=== PATIENT | male | born 1980 | race Caucasian/White ===

== ENCOUNTER 2018-05-12 13:55 | Inpatient (IN) | payer OTHER ==
[~2018-05-12] VITALS: Ht 162.6 cm; Wt 70.3 kg
--- NOTE | ~2018-05-12 | CON ---
[address] [address] CONSULTATION Name: MING ARREDONDO Room: [address] ADM IN M.R.#: [id number] Admission: 05/12/18 Attend Phys: Judith Murphy Discharge: Date of : 78 Report #: [id number] THIS REPORT FOR: //name// CC: ROJELIO physician/PCP Shane Humphreys DATE OF SERVICE: 05/12/2018 HISTORY OF PRESENT ILLNESS: The patient is a 37-year-old male who was involved in a 4-zheng accident. He slipped his 4-zheng, it landed on the back of his right calf and he developed approximately 4 cm laceration in the posterior aspect of his calf. He has been complaining of significant pain since the initial admission to the ER. We were consulted for evaluation and rule out of compartment syndrome. He denies any other acute complaints. PAST MEDICAL HISTORY: COPD. PAST SURGICAL HISTORY: Negative. FAMILY HISTORY: Noncontributory. SOCIAL HISTORY: He does use tobacco 1 pack a day and he also uses marijuana. HOME MEDICATIONS: None. ALLERGIES: VICODIN. REVIEW OF SYSTEMS: Obtained and negative except as noted in the HPI. PHYSICAL EXAMINATION: GENERAL: He is alert and oriented. He is in mild distress. HEENT: Head is normocephalic, atraumatic. Eyes, conjunctivae are clear. NECK: Supple. HEART: Capillary refill is brisk. LUNGS: No use of accessory muscles or retractions. MUSCULOSKELETAL: Right lower leg, he has approximately 4 cm laceration with exposed muscle belly on the posterior aspect of his calf. Compartments are somewhat tight compared to his contralateral side. There is no active bleeding from the wound. Posterior tib and dorsalis pedis pulses are +2/4 distally. Sensation is intact throughout all dermatomes to light touch distally. He is able to wiggle his toes without any significant pain. He does have some pain with extremes of motion of ankle plantar and dorsiflexion; however, throughout a short arc of motion, he has little pain to range of motion of the ankle. IMAGING: X-rays of the right tib-fib [place] [address] CONSULTATION Name: MING ARREDONDO Room: [address] IN [facility].#: [id number] Admission: 05/12/18 Attend Phys: Judith Murphy Discharge: Date of : 78 Report #: [id number] IMPRESSION: Right lower leg laceration. TREATMENT PLAN: There was concern that the patient's swelling had worsened even since he had been admitted to the Emergency Department and due to the tightness that he had in his calf compared to his contralateral side, I did recommend compartment pressure measurements with the Julia compartment pressure needle. This was obtained. Oral consent was obtained for this procedure. The skin was prepped with alcohol and measuring the superficial, posterior compartment pressure was measured to be approximately 30 mmHg and then the deep posterior compartment was measured to be approximately 40 mmHg. The needle was then removed. His diastolic pressures have been around 80-85 mmHg and this puts us over 40 mmHg within the diastolic pressures. Therefore, I do not feel there is any need to urgently take him to the operating room for 4-compartment fasciotomy. I discussed this with Yadira Weldon in the Emergency Department. I did recommend that she go ahead and close his laceration without closing any deep tissues as well as irrigate this well, then he will be admitted to Internal Medicine for at least observation overnight. If things worsen overnight, then we may consider urgently taking him to the operating room for fasciotomies. However, we will see how he does. Concerns were discussed with the patient and his significant other and they are agreeable with this plan of care. I am reassured that he is neurovascularly intact completely distally. Pulses are adequate and we will make further recommendations pending his hospital stay. Thank you for this consultation. By: [id number] 06Beau Donato DO /rena
[~2018-05-12 13:55] MED LIST: AMOXIL 875 MG875 M1 PO; AUGMENTIN 500-1 EACH PO; BACTRIM DS TAB1 EACH PO; CLOBETASOL EMOL15 GM TP; IBUPROFEN 800800 M1 PO; IBUPROFEN 800800 MG PO; KEFLEX500 MG PO; NORCO 5-325 TA1 EAC1 PO; PERCOCET 5-3251 EACH PO; PREDNISONE 10 M10 M1 PO; PREDNISONE 10 M10 MG PO; PREDNISONE 20 M20 MG PO; TRAMADOL 50 MG50 MG PO; TRIAMCINOLONE A80 G2 TOP; ULTRACET TABLE1 EACH PO
[2018-05-12 14:03] VITALS: BP 131/81
--- NOTE | 2018-05-12 14:50 | NUR ---
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
--- NOTE | 2018-05-12 15:16 | NUR ---
ORTHO HERE TO EVALUATE
[2018-05-12 17:21] VITALS: BP 122/78
[2018-05-12 17:30] VITALS: BP 124/95
--- NOTE | 2018-05-12 17:30 | NUR ---
ADMIT NOTE - PT ADMITTED TO [facility] FROM ED. SUTURES PRESENT TO RIGHT CALF JAYDEN. ALL BELONGINGS ACCOUNTED FOR AND DOCUMENTED. PT ORIENTED TO CALL LIGHT SYSTEM. WILL CONTINUE TO MONITOR.
--- NOTE | 2018-05-13 03:03 | NUR ---
ASSUMED CARE OF PT AT 1900. PT IS ALERT AND ORIENTED. VSS. CASSIE. PT REPORTS SEVERE PAIN IN HIS RIGHT LEG. PT GETTING MORPHINE AND OXYCODONE FOR PAIN. WOUND ON RIGHT LEG IS STITCHED AND OPEN TO AIR. MINIMAL DRAINAGE. PULSE IS BEING CHECKED EVERY 2 HOURS. FOOT REMAINS WARM AND CAPILLARY REFILL IS GOOD. PT IS SLEEPING QUIETLY IN BED. RESPIRATIONS ARE EVEN AND NONLABORED. WILL CONTINUE TO MONITOR PT.
[2018-05-13 07:55] VITALS: BP 119/74
[2018-05-13] MEDS ORDERED: NORCO 5-325 TA1 EACH PO (09:45)
[2018-05-13] MEDS ORDERED: AUGMENTIN 875-1 EACH PO (09:46)
[2018-05-13 13:21] VITALS: BP 119/74
--- NOTE | 2018-05-13 16:13 | NUR ---
PATIENT A&OX4, RA, IV LEFT HAND/WRIST SALINE LOCK. UP WITH ASSISTX1. CRUTCHES PROVIDED FOR PATIENT, ABLE TO TAKE HOME. C/O PIAN TO RIGHT CALF, LACERATION. NO OTHER CONCERNS AT THIS TIME. PATIENT DISCHARGED, IV DISCONTINUED, CATHETER FULLY INTACT. REVEIWED DISCHARGE WITH PATIENT, VERBALIZES UNDERSTANDING. NO OTHER CONCERNS AT THIS TIME. APPROPRAITE AND COOPORATIVE WITH CARE. PATIENT LEFT UNIT AT 1613 VIA W/C WITH NURSING STAFF AND FRIEND. ALL BELONGINGS TAKEN WITH.
== END 2018-05-13 16:13 | disposition home or self-care (01) | DRG 581 ==
LOC: M.ERS 13:55 → M.TBA-ER 16:13 → M.3W 17:45
PROVIDERS: ADMIT Internal Medicine
PROC: 0KQS3ZZ Repair Right Lower Leg Muscle, Percutaneous Approach (ICD-10-PCS; principal; 2018-05-12)
DX: S81.811A Laceration without foreign body, right lower leg, initial encounter (principal); F17.210 Nicotine dependence, cigarettes, uncomplicated; F12.90 Cannabis use, unspecified, uncomplicated; J44.9 Chronic obstructive pulmonary disease, unspecified; Z88.8 Allergy status to other drugs, medicaments and biological substances; Z88.6 Allergy status to analgesic agent; Z23 Encounter for immunization; V89.2XXA Person injured in unspecified motor-vehicle accident, traffic, initial encounter; Y93.39 Activity, other involving climbing, rappelling and jumping off; Y92.89 Other specified places as the place of occurrence of the external cause; Y99.8 Other external cause status; Z79.899 Other long term (current) drug therapy

== ENCOUNTER 2019-04-24 23:11 | Emergency (ER) | payer OTHER ==
[~2019-04-24] VITALS: Ht 162.6 cm; Wt 63.5 kg
[~2019-04-24 23:11] MED LIST changes: +AUGMENTIN 875-1 EACH PO; +NORCO 5-325 TA1 EACH PO
[2019-04-25 00:53] VITALS: BP 140/98
== END 2019-04-25 00:53 | disposition left against medical advice (07) ==
LOC: M.ERS 23:11
DX: L23.7 Allergic contact dermatitis due to plants, except food (principal); F17.210 Nicotine dependence, cigarettes, uncomplicated; J44.9 Chronic obstructive pulmonary disease, unspecified; Z88.6 Allergy status to analgesic agent; Z88.5 Allergy status to narcotic agent; Z88.8 Allergy status to other drugs, medicaments and biological substances